=== PATIENT | male | born 1995 | race Caucasian/White ===

== ENCOUNTER 2019-01-01 21:10 | Emergency (ER) | payer OTHER ==
[~2019-01-01] VITALS: Ht 177.8 cm; Wt 117.0 kg
[2019-01-01 21:39] VITALS: BP 134/75
--- NOTE | 2019-01-01 21:49 | NUR ---
AMBULATES BACK TO LOBBY WITH STEADY GAIT IN UPRIGHT POSITION. AWAITING AVAILABLE BED.
--- NOTE | 2019-01-01 22:00 | NUR ---
PATIENT AMB TO BED 10 WITH STEADY GAIT. SITTING UP IN BED, HOOKED UP TO MONITOR AND PUT IN GOWN. FAMILY MEMBER AT BEDSIDE. C/O LUQ ABD PAIN WITH NO VOMITING OR DIARRHEA. BED IN LOW LOCKED POSITION.
--- NOTE | 2019-01-01 23:00 | NUR ---
PT SITTING IN BED. SISTER AT BEDSIDE. NO SIGNS OF DISTRESS.
[2019-01-01] MEDS ORDERED: DICYCLOMINE HCL LIQUID 20 MG, ALUMINUM HYD/MAG/SIMETHICONE 30 ML, LIDOCAINE VISCOUS 2% ... PO ONE ×3 (23:55)
--- NOTE | 2019-01-02 00:30 | NUR ---
GI COCTAIL ADMINISTERED. PT TOLERATED WELL. PAIN HAS DECREASED.
--- NOTE | 2019-01-02 01:00 | NUR ---
PT LAYING IN BED NO SIGNS OF DISTRES. SISTER AT BEDSIDE. WILL CONTINUE TO MONITOR.
--- NOTE | 2019-01-02 02:30 | NUR ---
NO COMPLAINTS OF PAIN AT THIS TIME. NO SIGNS OF DISTRESS. WILL CONTINUE TO MONITOR.
--- NOTE | 2019-01-02 03:00 | NUR ---
PO CHALLENGE COMPLETE. TOLERATED WELL.
[2019-01-02 04:07] VITALS: BP 116/69
--- NOTE | 2019-01-02 04:07 | NUR ---
Patient discharged with v/s stable. Written and verbal after care instructions given and explained. Patient verbalized understanding. Ambulatory with steady gait. All questions addressed prior to discharge. Advised to follow up with PMD.
== END 2019-01-02 04:07 | disposition home or self-care (01) ==
LOC: MED 21:10
DX: K29.70 Gastritis, unspecified, without bleeding (principal); F41.9 Anxiety disorder, unspecified; Z91.018 Allergy to other foods
CPT/HCPCS: 99282

== ENCOUNTER 2019-09-24 12:37 | Emergency (ER) | payer OTHER ==
[~2019-09-24] VITALS: Ht 175.3 cm; Wt 111.1 kg
[2019-09-24 12:40] VITALS: BP 124/85
--- NOTE | 2019-09-24 12:57 | NUR ---
COVERING PRIMARY RN FOR LUNCH RELIEF -- RECEIVED A 23/M FROM TRIAGE WITH A C/O CHEST PAIN. PT REPORTS A PINCHING/SQUEEZING SENSATION X 30 MINS PRIOR TO ARRIVAL. PT DENIES INJURY OR TRAUMA. PT APPEARS WELL, NO OBVIOUS DISTRESS NOTED. IN BED FOR MSE.
--- NOTE | 2019-09-24 13:06 | NUR ---
DR. PIERCE EVALUATING PT AT BEDSIDE
[2019-09-24 13:22] VITALS: BP 124/85
== END 2019-09-24 13:21 | disposition home or self-care (01) ==
LOC: MED 12:37
DX: R07.9 Chest pain, unspecified (principal); Z88.9 Allergy status to unspecified drugs, medicaments and biological substances
CPT/HCPCS: 93005; 99283

== ENCOUNTER 2019-09-24 22:30 | Emergency (ER) | payer OTHER ==
[~2019-09-24] VITALS: Ht 175.3 cm; Wt 111.1 kg
[2019-09-24 22:37] VITALS: BP 132/88
--- NOTE | 2019-09-24 22:37 | NUR ---
ambulated to bed 4 with steady gait
--- NOTE | 2019-09-24 23:00 | NUR ---
PT WAS SEEN HERE AT 11AM TODAY WITH SAME C/O OF CHEST PAIN AND WAS DISCHARGED BUT HAS RETURNED BECAUSE HE STATES THE PAIN NOW RADIATES INTO HIS LEFT ARM. HE IS ALSO EXPERIENCING N/T TO LEFT ARM AND HAND. DESCRIBES THE PAIN TO HIS CHEST PINCHING TYPE PAIN 09/26. DENIES SOB, NO N/V, NO HEADACHE. PT ON BEDSIDE MONITOR AND V/S ARE ALL WNL. EKG IS NSR AT 71. BED IN LOWEST POSITIONS AND SIDERAIL UP X 1. NKDA NO HX
[2019-09-24 23:38] LABS: BASOPHILS # (AUTO) 0.1 K/uL (0.00-0.22); BASOPHILS % (AUTO) 0.8 % (0.0-2.0); EOSINOPHILS # (AUTO) 0.3 K/uL (0-0.4); EOSINOPHILS % (AUTO) 3.1 % (0.0-4.0); HEMATOCRIT 41.9 % (36-52); HEMOGLOBIN 14.7 g/dL (12.0-18.0); MEAN CORPUSCULAR HEMOGLOBIN 31 pg (27-31); MEAN CORPUSCULAR HGB CONC 35 g/dL (33-37); MEAN CORPUSCULAR VOLUME 88.3 fL (80-94); MONOCYTES # (AUTO) 0.6 K/uL (0.8-1.0); MONOCYTES % (AUTO) 6.6 % (1.7-9.3); NEUTROPHILS # (AUTO) 4.9 K/uL (1.8-7.7); NEUTROPHILS % (AUTO) 55.5 % (42.2-75.2); PLATELET COUNT (AUTO) 191 K/uL (140-450); RED BLOOD CELL COUNT(AUTO) 4.74 MIL/uL (4.20-6.10); RED CELL DISTRIBUTION WIDTH 13.3 % (11.6-13.7); WHITE BLOOD COUNT (AUTO) 8.9 K/uL (4.8-10.8)
[2019-09-24 23:55] LABS: ANION GAP 14.2 (8-16); CARBON DIOXIDE 26.6 mmol/L (21-32); CREATININE 0.9 mg/dL (0.6-1.3); POTASSIUM 3.8 mmol/L (3.5-5.1)
--- NOTE | 2019-09-24 23:55 | NUR ---
X-RAY AT BEDSIDE
[2019-09-25 00:26] VITALS: BP 135/86
--- NOTE | 2019-09-25 00:50 | NUR ---
PT RESTING ON BED COMFORTABLY.
--- NOTE | 2019-09-25 00:51 | NUR ---
providing relief for primary RN Kylah. assumed pt care at this time.
== END 2019-09-25 01:09 | disposition home or self-care (01) ==
LOC: MED 22:30
DX: R07.9 Chest pain, unspecified (principal)
CPT/HCPCS: 36415; 71045; 80048; 84484; 85025; 93005; 99285; Q0092

== ENCOUNTER 2021-03-22 09:00 | Emergency (ER) | payer OTHER ==
[~2021-03-22] VITALS: Ht 172.7 cm; Wt 104.3 kg
[2021-03-22 09:04] VITALS: BP 115/74
--- NOTE | 2021-03-22 09:08 | NUR ---
PATIENT AMBULATED TO BED 4.
--- NOTE | 2021-03-22 09:16 | NUR ---
25 Y/o male c/o 09/26 constant right chest pain x 1 hour ago. Worsening upon movement. DENIES TRAUMA/INJURY. PMH: DENIES
--- NOTE | 2021-03-22 09:19 | NUR ---
ermd at bedside examining pt
[2021-03-22 10:23] VITALS: BP 115/74
--- NOTE | 2021-03-22 10:23 | NUR ---
Patient discharged with v/s stable. Written and verbal after care instructions given and explained. Patient alert, oriented and verbalized understanding of instructions. Ambulatory with steady gait. All questions addressed prior to discharge. ID band removed. Patient advised to follow up with PMD. Opportunity to ask questions provided and answered.
== END 2021-03-22 10:23 | disposition home or self-care (01) ==
LOC: MED 09:00
DX: S29.011A Strain of muscle and tendon of front wall of thorax, initial encounter (principal); Z88.8 Allergy status to other drugs, medicaments and biological substances; X58.XXXA Exposure to other specified factors, initial encounter; Y93.89 Activity, other specified; Y92.89 Other specified places as the place of occurrence of the external cause; Y99.8 Other external cause status
CPT/HCPCS: 93005; 99283

== ENCOUNTER 2022-09-16 15:09 | Emergency (ER) | payer BC, OTHER ==
[~2022-09-16] VITALS: Ht 177.8 cm; Wt 113.4 kg
[2022-09-16 16:18] VITALS: BP 145/94; PULSE 81; RESP 18; TEMP 98; O2SAT 98
--- NOTE | 2022-09-16 16:56 | NUR ---
UA SENT TO LAB.
--- NOTE | 2022-09-16 18:00 | NUR ---
PA EVALUATING THE PT IN TRIAGE.
[2022-09-16 18:30] LABS: BILIRUBIN,URINE NEGATIVE (NEGATIVE); BLOOD, URINE 1+ (NEGATIVE); COLOR,URINE YELLOW (YELLOW); LEUKOCYTE ESTERASE ,URINE TRACE (NEGATIVE); NITRITE, URINE NEGATIVE (NEGATIVE); UGLUCOSE NEGATIVE (NEGATIVE)
[2022-09-16 18:32] LABS: APPEARANCE,URINE CLOUDY (CLEAR)
[2022-09-16] MEDS ORDERED: IBUP-2213 PO (19:18)
[2022-09-16] MEDS ORDERED: CEPH-588 PO (19:18)
== END 2022-09-16 20:01 | disposition home or self-care (01) ==
LOC: MED 15:09
DX: R30.0 Dysuria (principal); R31.9 Hematuria, unspecified; Z79.899 Other long term (current) drug therapy
CPT/HCPCS: 81001; 87086; 87491; 99283

== ENCOUNTER 2022-09-20 17:24 | Emergency (ER) | payer BC ==
[~2022-09-20] VITALS: Ht 177.8 cm; Wt 113.4 kg
[~2022-09-20 17:24] MED LIST: CEPH-588 PO; IBUP-2213 PO
[2022-09-20 17:42] VITALS: BP 122/85; PULSE 80; RESP 20; TEMP 98; O2SAT 99
[2022-09-20 18:40] LABS: APPEARANCE,URINE SL CLOUDY (CLEAR); BILIRUBIN,URINE NEGATIVE (NEGATIVE); BLOOD, URINE 3+ (NEGATIVE); COLOR,URINE YELLOW (YELLOW); LEUKOCYTE ESTERASE ,URINE 2+ (NEGATIVE); NITRITE, URINE NEGATIVE (NEGATIVE); UGLUCOSE NEGATIVE (NEGATIVE)
[2022-09-20 18:40] LABS: BASOPHILS % (AUTO) 0.5 % (0.0-2.0); EOSINOPHILS # (AUTO) 0.3 K/uL (0-0.4); EOSINOPHILS % (AUTO) 3.5 % (0.0-4.0); HEMATOCRIT 43.3 % (36-52); HEMOGLOBIN 15.2 g/dL (12.0-18.0); LYMPHOCYTES # (AUTO) 2.1 K/uL (2.0-11.5); LYMPHOCYTES % (AUTO) 25.3 % (20.5-51.1); MEAN CORPUSCULAR HEMOGLOBIN 30 pg (27-31); MEAN CORPUSCULAR HGB CONC 35 g/dL (33-37); MONOCYTES # (AUTO) 0.7 K/uL (0.8-1.0); MONOCYTES % (AUTO) 8.5 % (1.7-9.3); NEUTROPHILS # (AUTO) 5.1 K/uL (1.8-7.7); NEUTROPHILS % (AUTO) 62.2 % (42.2-75.2); PLATELET COUNT (AUTO) 217 K/uL (140-450); RED BLOOD CELL COUNT(AUTO) 5.03 MIL/uL (4.20-6.10); RED CELL DISTRIBUTION WIDTH 13.5 % (11.6-13.7); WHITE BLOOD COUNT (AUTO) 8.1 K/uL (4.8-10.8)
[2022-09-20 18:47] LABS: RBC,URINE 20-50 /HPF (0-5)
[2022-09-20 18:48] LABS: OTHER CASTS, URINE EPITHELIAL CASTS 1+ /LPF (None Seen); RED BLOOD CELL CASTS,URINE 0-10 /LPF (None Seen); TRICHOMONAS,URINE None Seen /HPF (None Seen); YEAST,URINE None Seen /HPF (None Seen)
[2022-09-20 19:03] LABS: ALBUMIN 4.1 g/dL (3.4-5.0); ANION GAP 12.5 (8-16); CARBON DIOXIDE 28.5 mmol/L (21-32); CREATININE 0.7 mg/dL (0.6-1.3); TOTAL BILIRUBIN 0.3 mg/dL (0.0-1.0)
[2022-09-20 19:41] VITALS: BP 118/81; PULSE 78; RESP 16; TEMP 98; O2SAT 99
== END 2022-09-20 19:40 | disposition home or self-care (01) ==
LOC: MED 17:24
DX: N30.90 Cystitis, unspecified without hematuria (principal); K76.0 Fatty (change of) liver, not elsewhere classified; Z88.8 Allergy status to other drugs, medicaments and biological substances; Z79.899 Other long term (current) drug therapy
CPT/HCPCS: 36415; 80053; 81001; 83690; 85025; 87086; 99284